=== PATIENT | female | born 1990 | race Caucasian/White ===

== ENCOUNTER 2016-06-15 01:11 | Emergency (ER) | payer OTHER | END 2016-06-15 02:45 | disposition home or self-care (01) | LOC: ER 01:11 | DX: R10.11 Right upper quadrant pain (principal); F17.210 Nicotine dependence, cigarettes, uncomplicated; Z98.890 Other specified postprocedural states | CPT/HCPCS: 36415 ==

== ENCOUNTER 2016-07-29 16:21 | Emergency (ER) | payer OTHER | END 2016-07-29 17:21 | disposition home or self-care (01) | LOC: ER 16:21 | DX: N39.0 Urinary tract infection, site not specified (principal); E66.9 Obesity, unspecified; F17.210 Nicotine dependence, cigarettes, uncomplicated; Z68.27 Body mass index [BMI] 27.0-27.9, adult | CPT/HCPCS: 96372; J1885 ==